=== PATIENT | female | born 1965 | race Caucasian/White ===

== ENCOUNTER 2024-08-15 16:54 | Emergency (ER) | payer BC, OTHER ==
[~2024-08-15] VITALS: Ht 162.6 cm; Wt 122.5 kg
[2024-08-15 17:03] VITALS: TEMP 97.8
[2024-08-15] MEDS ORDERED: MIRALAX17 GM PO (19:29)
[2024-08-15 19:45] VITALS: PULSE 65; RESP 19
[2024-08-15 19:54] VITALS: BP 144/80; O2SAT 98
== END 2024-08-15 19:53 | disposition home or self-care (01) ==
LOC: ER 17:45
DX: R53.1 Weakness (principal); K59.00 Constipation, unspecified; I10 Essential (primary) hypertension; D33.3 Benign neoplasm of cranial nerves; Z98.84 Bariatric surgery status
CPT/HCPCS: 70450; 71045; 74176; 99284